=== PATIENT | female | born 1960 | race Caucasian/White ===

== ENCOUNTER 2019-01-05 04:47 | Emergency (ER) | payer MEDICARE, SELFPAY ==
[2019-01-05 04:49] VITALS: BP 126/68; PULSE 99; RESP 20; TEMP 36.8; O2SAT 97; BMI 58.5
[2019-01-05 04:52] VITALS: RESP 20
--- NOTE | 2019-01-05 05:01 | ED.VISSUMM ---
- ER Visit Summary Date of Service: 01/05/19 Chief Complaint: Rash History of Present Illness: The patient is a 58 F presenting with rash/hives which started yesterday. Yesterday afternoon she took Benadryl with improvement of her symptoms. She awoke at 1 AM with return of her symptoms. She complains of itching all over. She denies difficulty breathing or swallowing. She has had no known new exposures. She denies new laundry detergents, soaps, pets, medications, foods. Denies other complaints. Physical Examination: Vitals are stable. Patient is afebrile. Alert no acute distress. HEENT exam is unremarkable. No tongue swelling. No pharyngeal edema. Neck is supple. Lungs are clear and equal bilaterally. Heart is regular rate and rhythm. Abdomen is soft nontender nondistended. Extremities are unremarkable. Skin is warm and dry. Urticarial rash trunk and bilateral upper extremities Remainder of exam is unremarkable. Emergency Department Course and Treatment: Patient was given Solu-Medrol, Benadryl IV. Patient was observed in the ED. On reevaluation, she is feeling improved. She is given a prescription for prednisone. Advised to follow-up with her primary care physician. Advised to return to ED for worsening complaints. Disposition: Discharge home Impression: Urticaria This note was generated with [employer] dictation software. It may contain incorrect words, spelling, and punctuation that were not noted in review of the chart prior to signing ED Disposition - Plan for ED Patient: Instructions: ED Urticaria Prescriptions: Prednisone [Deltasone] 40 mg PO DAILY #10 tablet Referrals: [facility] ,Out of [Primary Care Provider] -
--- NOTE | 2019-01-05 05:05 | ED.DCSUM_ITS ---
- ER Visit Summary Date of Service: 01/05/19 Chief Complaint: Rash History of Present Illness: The patient is a 58 F presenting with rash/hives which started yesterday. Yesterday afternoon she took Benadryl with improvement of her symptoms. She awoke at 1 AM with return of her symptoms. She complains of itching all over. She denies difficulty breathing or swallowing. She has had no known new exposures. She denies new laundry detergents, soaps, pets, medications, foods. Denies other complaints. Physical Examination: Vitals are stable. Patient is afebrile. Alert no acute distress. HEENT exam is unremarkable. No tongue swelling. No pharyngeal edema. Neck is supple. Lungs are clear and equal bilaterally. Heart is regular rate and rhythm. Abdomen is soft nontender nondistended. Extremities are unremarkable. Skin is warm and dry. Urticarial rash trunk and bilateral upper extremities Remainder of exam is unremarkable. Emergency Department Course and Treatment: Patient was given Solu-Medrol, Benadryl IV. Patient was observed in the ED. On reevaluation, she is feeling improved. She is given a prescription for prednisone. Advised to follow-up with her primary care physician. Advised to return to ED for worsening comp laints. Disposition: Discharge home Impression: Urticaria This note was generated with [employer] dictation software. It may contain incorrect words, spelling, and punctuation that were not noted in review of the chart prior to signing ED Disposition - Plan for ED Patient: Instructions: ED Urticaria Prescriptions: Prednisone [Deltasone] 40 mg PO DAILY #10 tablet Referrals: [facility] Doctor,Out of [Primary Care Provider] -
[2019-01-05] MEDS: DiphenhydrAMINE 50 MG/ML Syringe 25 MG IV (05:24)
[2019-01-05] MEDS: MethylPREDNISolone 125 MG/2 ML Vial IV (05:25)
--- NOTE | 2019-01-05 06:17 | DCINST.ED_ITS ---
ED Disposition - Plan for ED Patient: Instructions: ED Urticaria Prescriptions: Prednisone [Deltasone] 40 mg PO DAILY #10 tablet Referrals: [facility] Doctor,Out of [Primary Care Provider] -
[2019-01-05 06:31] VITALS: BP 138/65; PULSE 88; RESP 16; O2SAT 98
== END 2019-01-05 06:32 | disposition home or self-care (01) ==
PROVIDERS: Emergency Provider Emergency Medicine
DX: L50.9 Urticaria, unspecified (principal); E11.9 Type 2 diabetes mellitus without complications; I10 Essential (primary) hypertension; G47.33 Obstructive sleep apnea (adult) (pediatric)
CPT/HCPCS: 96374; 96375; 99284; A4216

== ENCOUNTER 2019-12-12 13:06 | Emergency (ER) | payer MEDICARE, SELFPAY ==
[2019-12-12 13:06] VITALS: BP 146/96; PULSE 93; RESP 16; TEMP 36.6; O2SAT 92; BMI 55.5
--- NOTE | 2019-12-12 13:28 | ED.VIS.URI ---
History of Present Illness Chief Complaint: Cough Informant: Patient Onset: Weeks - about 3 Context: Gradual Onset Timing: Continuous Quality: occ productive cough w/o blood Location: chest Current Severity: Moderate Maximum Severity: Moderate Worsened by: - - coughing, exertion Relieved by: - - rest Associated Symptoms: Nasal Congestion, Shortness of Breath - wheezing, Nonproductive cough. Negative for: Headache, Hemoptysis Narrative: Patient was having some fevers with this but those stopped almost 1 week ago. She was seen in urgent care last week for this, she was put on an unknown antibiotic that she has been taking twice daily for 10 days that starts with DU. 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 She states her asthma has been exacerbated throughout this illness, they would not put her on any steroids last week. She tried to see urgent care at [facility] today but the screener outside the building would not letter written and directed her to the ER. She denies having any known contact with a covid-19 patient. She has not traveled out of the area recently. She is using her albuterol 2 or 3 times daily to try to keep her wheezing at bay and it is helping. 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 Denies: Chills, Sweats Eyes: Denies: Visual changes - bilaterally, Diplopia ENT: Reports: Rhinorrhea. Denies: Bilateral ear pain, Sore throat Cardiovascular: Denies: Chest pain, Palpitations Respiratory: Reports: Dyspnea, Cough, Dyspnea on exertion. Denies: Orthopnea Gastrointestinal: Denies: Abdominal pain, Nausea, Vomiting, Diarrhea, Melena, Hematochezia Genitourinary: Denies: Dysuria, Hematuria, Frequency Musculoskeletal: Denies: Neck pain, Back pain, Swelling, Extremity Pain Skin: Denies: Rash, Wounds Neurological: Denies: Headache, Weakness, Numbness Physical Exam Vital Signs/Narrative: Vital Signs Temp Pulse Resp BP Pulse Ox 12/12/19 13:06 97.8 F 93 16 146/96 H 92 Inital Vital Signs reviewed: Yes General: Well nourished, Well developed, Obese, - - Well-appearing, no distress. Conversive in full sentences Head: Normocephalic, Atraumatic Eyes: Perrl, EOMI Ears: Normal external canal, TM's clear Nose: Normal Inspection, Congestion Mouth/Throat: Normal Inspection, No Posterior Erythema, Airway Patent Neck: Supple, Nontender, No Lymphadenopathy, No Meningismus Cardiovascular: Regular rate, Regular rhythm, No murmurs. Negative for: Tachycardia Respiratory: No distress, Chest nontender, Wheezing. Negative for: Rales, Rhonchi Back: Nontender, Normal Inspection Extremities: Nontender, No edema Skin: Normal color, No rash Neurological: Alert, Oriented x3, Cranial nerves II-XII grossly intact, Normal Strength, Normal Sensation, Normal Gait Psychological: Normal affect, Normal Mood Diagnostic/Tx/Re-eval - Medical Decision Making Patient does not have COVID-19 exposure and is not critically ill or clinically septic, vital signs are stable without hypoxia, and at this time does not meet current [facility] requirements for testing for COVID-19. Also no need to test for influenza. She is on an antibiotic, does not sound like she has pneumonia, her pulse ox is at 92% but that is having had a right upper lobectomy. I feel placing her on steroids will be reasonable since she is able to manage her blood sugar with her insulin if it goes up, she is very familiar with doing this. She is in agreement, that is really what she is wanting and agrees that this is probably viral since the antibiotics that she has been on for 5 days are not helping, I do recommend that she finish the since she started him, and we discussed reasons to return. She is comfortable with this plan of doing a 6-day steroid burst, that way if her blood sugars go too high and are unmanageable she can discontinue it without any adrenal consequences. ED Disposition - Plan for ED Patient: Disposition: Home or Assisted Living Diagnosis: Acute asthmatic bronchitis Instructions: ASTHMA, Acute (Adult), BRONCHITIS with Wheezing (Adult) Prescriptions: Prednisone [Deltasone] 40 mg PO DAILY #12 tab Transmission Status: Pending to [id number] Referrals: [facility] Doctor,Out of [Primary Care Provider] - 1 Week if not improving
== END 2019-12-12 13:44 | disposition home or self-care (01) ==
LOC: ED 13:42
PROVIDERS: Emergency Provider Emergency Medicine
DX: J45.909 Unspecified asthma, uncomplicated (principal); E66.9 Obesity, unspecified; Z90.2 Acquired absence of lung [part of]; E11.9 Type 2 diabetes mellitus without complications; Z79.4 Long term (current) use of insulin
CPT/HCPCS: 99281; 99282

== ENCOUNTER 2021-04-29 08:24 | Day surgery (SDC) | payer MEDICARE, SELFPAY ==
[2021-04-29 09:10] VITALS: BP 103/51; PULSE 72; RESP 16; TEMP 37.1; O2SAT 100; BMI 54.8
[2021-04-29] MEDS: Lactated Ringers 1,000 ML 100 ML IV (09:37)
[2021-04-29 09:40] LABS: Bedside Glucose 80 mg/dL (70-110)
--- NOTE | 2021-04-29 09:42 | RAD_ITS ---
PROCEDURE: Caudal block. DATE OF EXAMINATION: 04/29/2021. INDICATION: Female, 61 years old. Chronic low back pain. FLUOROSCOPY TIME (if supplied): (16 seconds) minutes/seconds. One image was submitted. RAD/Fluor Guidance for Spine Inj IMPRESSION: Intraoperative imaging provided for caudal block. Electronically Signed: Radhames Corona MD at 12:11 EDT , Service support ,
[2021-04-29] MEDS: MethylPREDNISolone Acetate 80 MG/ML Vial (09:50)
[2021-04-29] MEDS: 0.9% Normal Saline (Pres. free 10 ML Vial (09:50)
[2021-04-29] MEDS: Bupivacaine 0.25% 30 ML Vial (09:50)
[2021-04-29] MEDS: Lidocaine 1% (5 ml sdv) 5 ML Vial (09:50)
[2021-04-29 10:00] VITALS: BP 103/51; BP 112/43; PULSE 67; RESP 16; TEMP 36.7; O2SAT 100
[2021-04-29 10:05] VITALS: BP 103/51; BP 116/67; PULSE 70; RESP 16; O2SAT 100
[2021-04-29 10:10] VITALS: BP 103/51; BP 116/67; PULSE 67; RESP 14; O2SAT 97
[2021-04-29 10:15] VITALS: BP 103/51; BP 120/63; PULSE 70; RESP 16; TEMP 36.8; O2SAT 100
[2021-04-29 10:39] VITALS: BP 103/51
--- NOTE | 2021-04-29 13:23 | OP.PCM_ITS ---
Report of Operation Date of Procedure: 04/29/21 Pre-Operative Diagnosis: Lumbosacral radiculopathy, lumbosacral degenerative di sc disease, lumbosacral spinal stenosis Post-Operative Diagnosis: Lumbosacral radiculopathy, lumbosacral degenerative disc disease, lumbosacral spinal stenosis Surgery/Procedure Performed:: Caudal epidural steroid injection under fluoroscopic guidance Type of Anesthesia: MAC Estimated Blood Loss (mL): Minimal Description of Procedure: DESCRIPTION OF PROCEDURE: History and physical of today was reviewed. Risks and benefits of the procedure were explained. The patient understood and agreed to proceed. Informed consent was obtained. IV inserted per routine protocol. The patient was taken to the operating room and placed in the prone position with a pillow positioned underneath the abdomen. The lower back and tailbone area was prepped and draped in a sterile fashion using iodine x3. Under fluoroscopy guidance on a lateral view, the caudal space was identified. The skin and subcutaneous tissue was anesthetized with approximately 3 mL of 1% lidocaine using a 25-gauge regular needle. Under direct visualization with fluoroscopy, using a 22-gauge 3-1/2-inch spinal needle, the needle was advanced via the skin through the sacral hiatus. The tip of the needle was passed through the sacrococcygeal ligament and advanced to approximately S4 area. After negative aspiration of blood or CSF, a total of 3 mL of contrast was injected to confirm correct placement of the needle as well as cephalad spread. The spread was followed to approximately L5 area. After confirmation on AP as well as lateral view and repeated negative aspiration, a total of 15 mL of preservative-free 0.125% Marcaine with 80 mg of Depo-Medrol was injected easily. The needle was then removed intact. The patient experienced no sign or symptoms of intrathecal or intravascular injection. The patient experienced no paresthesia. The procedure was completed without any apparent difficulty or any complications. The patient appeared to tolerate it well. ASSESSMENT AND PLAN: This is a 61-year-old female with lumbosacral radiculopathy, lumbosacral degenerative disc disease, lumbosacral spinal stenosis status post caudal epidural steroid injection, patient will continue her current medications, patient will follow in approximately 2 weeks for reevaluation. Complications None
== END 2021-04-29 11:00 | disposition home or self-care (01) ==
LOC: SDC 08:26 → AC 08:26
PROVIDERS: Referring Provider Anesthesiology Pain Medicine; Visit Provider Anesthesiology Pain Medicine
PROC: 3E0S3BZ Introduction of Anesthetic Agent into Epidural Space, Percutaneous Approach (ICD-10-PCS; CPT 62282; principal; 2021-04-29 09:35)
DX: M47.27 Other spondylosis with radiculopathy, lumbosacral region (principal); M51.17 Intervertebral disc disorders with radiculopathy, lumbosacral region; M48.07 Spinal stenosis, lumbosacral region; M96.1 Postlaminectomy syndrome, not elsewhere classified; M46.96 Unspecified inflammatory spondylopathy, lumbar region; I10 Essential (primary) hypertension; E11.9 Type 2 diabetes mellitus without complications; F32.9 Major depressive disorder, single episode, unspecified; E55.9 Vitamin D deficiency, unspecified; J45.909 Unspecified asthma, uncomplicated; K21.9 Gastro-esophageal reflux disease without esophagitis; G47.33 Obstructive sleep apnea (adult) (pediatric); E05.00 Thyrotoxicosis with diffuse goiter without thyrotoxic crisis or storm; M19.90 Unspecified osteoarthritis, unspecified site; D64.9 Anemia, unspecified; Z85.3 Personal history of malignant neoplasm of breast; Z86.14 Personal history of Methicillin resistant Staphylococcus aureus infection; Z79.4 Long term (current) use of insulin; Z79.82 Long term (current) use of aspirin; Z79.899 Other long term (current) drug therapy; Z79.891 Long term (current) use of opiate analgesic
CPT/HCPCS: 01992; 62323; 64483; 77003; 82962; J7120; J3490

== ENCOUNTER 2021-07-29 09:27 | Day surgery (SDC) | payer MEDICARE, SELFPAY ==
[2021-07-29] VITALS (7 sets, daily range): BP systolic 99–124; BP diastolic 55–74; PULSE 59–65; RESP 16–18; TEMP 36.3–36.9; O2SAT 95–100; BMI 51.7
[2021-07-29] MEDS: Lactated Ringers 1,000 ML 100 ML IV (10:35)
[2021-07-29 10:41] LABS: Bedside Glucose 93 mg/dL (70-110)
--- NOTE | 2021-07-29 11:00 | RAD_ITS ---
EXAM: XR Lumbosacral Spine, 4 or 5 Views CLINICAL INDICATION: 61 years old, Female; MEDIAL BRANCH NERVE BLOCK, L4-S1, BILAT TECHNIQUE: Frontal, lateral and oblique views of the lumbar spine. This report was created using [employer] report [employer] technology. COMPARISON: None. FINDINGS: Vertebrae: Partially visualized. Preserved vertebral body height. No fracture. No spondylolisthesis. Preservation of the normal lumbar lordosis. No significant facet arthropathy. Sacrum/coccyx: Postop changes lumbar spine through sacrum. Disc spaces: No acute findings. Disc spaces are maintained where seen. Other findings: X-ray images demonstrate needle placement for median nerve block. RAD/L/S Spine Min 4 Views IMPRESSION: X-ray images demonstrate needle placement for median nerve block. Electronically Signed: Prince Mayorga MD at 4:03 EDT Tel , Service support ,
--- NOTE | 2021-07-29 11:11 | OP.PCM_ITS ---
Report of Operation Description of Surgical Findings:: Date of Procedure: 07/29/21 Pre-Operative Diagnosis: Lumbosacral spondylosis, lumbosacral degenerative disc disease, lumbar facet arthropathy Post-Operative Diagnosis: Lumbosacral spondylosis, lumbosacral degenerative disc disease, lumbar facet arthropathy PROCEDURE PERFORMED: Bilateral lumbar medial branch block at, L4, L5, and S1. ANESTHESIA: MAC. BLOOD LOSS: Minimal. COMPLICATIONS: None. DESCRIPTION OF PROCEDURE: History and physical of today was reviewed. Risks a nd benefits of the procedure were explained. The patient understood and agreed to proceed. Informed consent was obtained. IV inserted per routine protocol. The patient was taken to the operating room and placed in the prone position with a pillow positioned underneath the abdomen. The lower back area was prepped and draped in a sterile fashion using iodine x3. Under fluoroscopy guidance on AP view, the L4 through S1 vertebral bodies were visualized. The skin and subcutaneous tissue was anesthetized with approximately 5 mL of 1% lidocaine using a 25-gauge regular needle. Under direct visualization with fluoroscopy, at approximately 25-degree angle, starting on the left L4, ending on the right L4, passing through the L5 and S1 bilaterally, using a 22-gauge 5- inch spinal needle, the needle was advanced via the skin. The tip of the needle was maneuvered and directed towards the superior medial gutter of the transverse process at the vicinity of the medial branch. Once tip of the needle was in contact with the bone, the needle was pulled approximately 2 mm off the bone. After negative aspiration for blood or CSF and confirmation on AP, oblique as well as lateral view, a total of 12 mL of preservative-free 0.25% Marcaine with 80 mg of Depo-Medrol was injected in divided doses between those six levels. The needles were then removed intact. The patient experienced no sign or symptoms of intrathecal or intravascular injection. The patient experienced no paresthesia. The procedure was completed without any apparent difficulty or any complications. The patient appeared to tolerate it well. ASSESSMENT AND PLAN: This is a 61-year-old female with lumbosacral spondylosis, lumbosacral degenerative disc disease, lumbar facet arthropathy status post bilateral lumbar medial branch block at L4-S1, patient will continue her current medications, patient will follow in approximately 2 weeks for reevaluation.
[2021-07-29] MEDS: MethylPREDNISolone Acetate 40 MG/ML Vial IM (11:19)
[2021-07-29] MEDS: Lidocaine 1% (30 ml sdv) 30 ML Vial (11:19)
[2021-07-29] MEDS: Bupivacaine 0.25% 30 ML Vial (11:21)
== END 2021-07-29 12:17 | disposition home or self-care (01) ==
LOC: SDC 09:44 → AC 09:44
PROVIDERS: Referring Provider Anesthesiology Pain Medicine; Visit Provider Anesthesiology Pain Medicine
PROC: 3E0T3BZ Introduction of Anesthetic Agent into Peripheral Nerves and Plexi, Percutaneous Approach (ICD-10-PCS; CPT 64493; principal; 2021-07-29 10:55)
DX: M47.817 Spondylosis without myelopathy or radiculopathy, lumbosacral region (principal); M51.17 Intervertebral disc disorders with radiculopathy, lumbosacral region; M46.96 Unspecified inflammatory spondylopathy, lumbar region; M96.1 Postlaminectomy syndrome, not elsewhere classified; M48.07 Spinal stenosis, lumbosacral region; I10 Essential (primary) hypertension; E11.9 Type 2 diabetes mellitus without complications; D64.9 Anemia, unspecified; F32.A Depression, unspecified; E55.9 Vitamin D deficiency, unspecified; K21.9 Gastro-esophageal reflux disease without esophagitis; G47.33 Obstructive sleep apnea (adult) (pediatric); E05.00 Thyrotoxicosis with diffuse goiter without thyrotoxic crisis or storm; M19.90 Unspecified osteoarthritis, unspecified site; J45.909 Unspecified asthma, uncomplicated; Z85.3 Personal history of malignant neoplasm of breast; Z86.19 Personal history of other infectious and parasitic diseases; Z86.14 Personal history of Methicillin resistant Staphylococcus aureus infection; Z79.4 Long term (current) use of insulin; Z79.82 Long term (current) use of aspirin; Z79.891 Long term (current) use of opiate analgesic; Z79.899 Other long term (current) drug therapy
CPT/HCPCS: 01992; 64493; 64494; 64495; 64483; 72110; 82962; J7120

== ENCOUNTER 2021-12-30 07:07 | Day surgery (SDC) | payer MEDICARE, SELFPAY ==
[2021-12-30] VITALS (7 sets, daily range): BP systolic 111–140; BP diastolic 51–91; PULSE 70–80; RESP 16; TEMP 36.8–37; O2SAT 98–100; BMI 50.1
[2021-12-30 07:56] LABS: Bedside Glucose 64 mg/dL (74-106)
[2021-12-30] MEDS: Lactated Ringers 1,000 ML 15 ML IV (07:59)
--- NOTE | 2021-12-30 08:26 | RAD_ITS ---
STUDY: X-RAY - LUMBAR SPINE REASON FOR EXAM: Female, 61 years old. MEDIAL BRANCH NERVE BLOCK T12-L2, BILAT TECHNIQUE: Four frontal view(s) of the lumbar spine were obtained. Dose area product: 0.213 mGycm2 COMPARISON: None. FINDINGS: Fluoroscopic images demonstrate needles projecting over L1 and L2 pedicles. Lumbar fusion hardware noted. RAD/L/S Spine Min 4 Views IMPRESSION: Fluoroscopic guidance for median nerve root block. Please see procedural report. Electronically Signed: Jesus Gould MD (Brooks) at 13:46 EDT ,
--- NOTE | 2021-12-30 08:26 | RAD_ITS ---
STUDY: X-RAY - THORACIC SPINE REASON FOR EXAM: Female, 61 years old. MEDIAL BRANCH NERVE BLOCK T12-L2, BILAT TECHNIQUE: 2 fluoroscopic view(s) of the thoracic spine were obtained. Dose area product: 0.213 mGycm2 COMPARISON: None. FINDINGS: Fluoroscopic images demonstrate needles projecting over T12 pedicles.. RAD/Thoracic Spine 2 Views IMPRESSION: Fluoroscopic guidance for median nerve root block. Please see procedural report. Electronically Signed: Jesus Gould MD ([place]) at 13:45 EDT Reading Location ID and State: [address] [place] [address] , Service support ,
[2021-12-30] MEDS: MethylPREDNISolone Acetate 80 MG/ML Vial (08:37)
[2021-12-30] MEDS: Lidocaine 1% (5 ml sdv) 5 ML Vial (08:37)
[2021-12-30] MEDS: Bupivacaine 0.25% 30 ML Vial (08:37)
--- NOTE | 2021-12-30 12:47 | PCM.OPRPT ---
Report of Operation Date of Procedure: 12/30/21 Description of Surgical Findings:: PREOPERATIVE DIAGNOSES: Thoracolumbar spondylosis, thoracolumbar degenerative disc disease, thoracolumbar facet arthropathy POSTOPERATIVE DIAGNOSES: Thoracolumbar spondylosis, thoracolumbar degenerative disc disease, thoracolumbar facet arthropathy PROCEDURE PERFORMED: Bilateral thoracolumbar medial branch block at T11, T12, L1.. ANESTHESIA: MAC. BLOOD LOSS: Minimal. COMPLICATIONS: None. DESCRIPTION OF PROCEDURE: History and physical of today was reviewed. Risks and benefits of the procedure were explained. The patient understood and agreed to proceed. Informed consent was obtained. IV inserted per routine protocol. The patient was taken to the operating room and placed in the prone position with a pillow positioned underneath the abdomen. The mid back area was prepped and draped in a sterile fashion using iodine x3. Under fluoroscopy guidance on AP view, the T11 through L2 vertebral bodies were visualized. The skin and subcutaneous tissue was anesthetized with approximately 5 mL of 1% lidocaine using a 25-gauge regular needle. Under direct visualization with fluoroscopy at approximately 25-degree angle, starting on the left T11, ending on the right T11, passing through the T12 and L1 bilaterally, using a 22-gauge 3-1/2-inch spinal needle, the needle was advanced via the skin. The tip of the needle was maneuvered and directed towards the epiphyseal junction of each corresponding vertebra at T11 and T12. At L1 and L2, the needle was maneuvered and directed towards the superior medial gutter of the transverse process at the vicinity of the medial branch. Once tip of the needle was in contact with the bone, the needle was pulled approximately 2 mm of the bone. After negative aspiration for blood or CSF and confirmation on AP, oblique as well as lateral view, a total of 12 mL of preservative-free 0.25% Marcaine with 80 mg of Depo-Medrol was injected in divided doses between those four levels. The needles were then removed intact. The patient experienced no sign or symptoms of intrathecal or intravascular injection. The patient experienced no paresthesia. The procedure was completed without any apparent difficulty or any complications. The patient appeared to tolerate it well. ASSESSMENT AND PLAN: This is a 61-year-old female with thoracolumbar spondylosis, thoracolumbar degenerative disc disease, thoracolumbar facet arthropathy status post bilateral thoracolumbar medial branch block at T11-L1, patient will continue her current medications, patient will follow approximately 1 week for reevaluation.
== END 2021-12-30 23:59 | disposition home or self-care (01) ==
LOC: SDC 07:11 → AC 07:12
PROVIDERS: Referring Provider Anesthesiology Pain Medicine; Visit Provider Anesthesiology Pain Medicine
PROC: 3E0T3BZ Introduction of Anesthetic Agent into Peripheral Nerves and Plexi, Percutaneous Approach (ICD-10-PCS; CPT 64479; principal; 2021-12-30 08:40)
DX: M47.815 Spondylosis without myelopathy or radiculopathy, thoracolumbar region (principal); M46.96 Unspecified inflammatory spondylopathy, lumbar region; E11.9 Type 2 diabetes mellitus without complications; Z79.4 Long term (current) use of insulin; M51.35 Other intervertebral disc degeneration, thoracolumbar region; I10 Essential (primary) hypertension; F32.A Depression, unspecified; E55.9 Vitamin D deficiency, unspecified; J45.909 Unspecified asthma, uncomplicated; K21.9 Gastro-esophageal reflux disease without esophagitis; G47.33 Obstructive sleep apnea (adult) (pediatric); M19.90 Unspecified osteoarthritis, unspecified site; Z85.3 Personal history of malignant neoplasm of breast; Z86.19 Personal history of other infectious and parasitic diseases; Z86.14 Personal history of Methicillin resistant Staphylococcus aureus infection; Z79.82 Long term (current) use of aspirin; Z79.899 Other long term (current) drug therapy; M96.1 Postlaminectomy syndrome, not elsewhere classified; M51.17 Intervertebral disc disorders with radiculopathy, lumbosacral region; M47.27 Other spondylosis with radiculopathy, lumbosacral region; M48.07 Spinal stenosis, lumbosacral region; Z79.891 Long term (current) use of opiate analgesic
CPT/HCPCS: 64479; 64480 ×2; 01992; 64483; 64490; 72070; 72110; 82962; J7120

== ENCOUNTER 2022-05-12 12:38 | Day surgery (SDC) | payer MEDICARE, SELFPAY ==
[2022-05-12] VITALS (7 sets, daily range): BP systolic 103–133; BP diastolic 54–84; PULSE 60–70; RESP 16–18; TEMP 36.4–37.2; O2SAT 98–100; BMI 53.9
[2022-05-12] MEDS: Lactated Ringers 1,000 ML 15 ML IV (13:33)
[2022-05-12] MEDS: Cefazolin 2 GM in 0.9% Normal Saline 100 ML IV (13:55)
--- NOTE | 2022-05-12 13:55 | RAD_ITS ---
STUDY: X-RAY - LUMBAR SPINE REASON FOR EXAM: Female, 62 years old. SPINAL CORD STIM THORACOLUMBAR REGION TECHNIQUE: 2 view(s) of the lumbar spine were obtained. COMPARISON: None FINDINGS: Fluoroscopy the lumbar spine was utilized in the operating room during a dorsal column spinal stimulator placement in 9 images are significant for interpretation.. RAD/Lumbar Spine 2 or 3 Views IMPRESSION: Fluoroscopy during stimulator placement. Electronically Signed: Dyllan Marquez MD at 14:42 EDT ,
[2022-05-12 13:56] LABS: Bedside Glucose 76 mg/dL (74-106)
[2022-05-12] MEDS: Bupivacaine 0.25% 30 ML Vial (14:03)
[2022-05-12] MEDS: Lidocaine 2% (5ml sdv) 5 ML VIAL.MPF 20 ML INFILT (14:03)
[2022-05-12] MEDS: Bacitracin 500 UNITS/GM PACKET (14:30)
--- NOTE | 2022-05-12 14:31 | PCM.OPRPT ---
Report of Operation Date of Procedure: 05/12/22 Description of Surgical Findings:: Pre-Operative Diagnosis: Lumbosacral radiculopathy, lumbosacral degenerative disc disease, lumbosacral spinal stenosis, postlaminectomy syndrome of the lumbar spine Post-Operative Diagnosis: Lumbosacral radiculopathy, lumbosacral degenerative disc disease, lumbosacral spinal stenosis, postlaminectomy syndrome of the lumbar spine Surgery/Procedure Performed:: 1.? Spinal cord stimulator thoracolumbar leads placement x2 percutanous trial 2-spinal cord stimulator complex programming, 3-intraoperative fluoroscopic interpretation for spinal cord stimulator insertion. ANESTHESIA: MAC COMPLICATIONS: None BLOOD LOSS: Minimal Implanted device: Spinal cord stimulator lead [id number] lot number [id number], lead #2? [id number] lot number [id number] PROCEDURE IN DETAIL: History and physical today was reviewed. Risks and benefits of procedure explained. The patient understood, agreed to procedure, informed consent was obtained. IV inserted per routine protocol. The patient was taken to the operating room, placed in the prone position with a pillow positioned underneath the abdomen. A 2 g of Ancef IV piggyback was infused per anesthesia. The lower back area was prepped and draped in a sterile fashion using iodine x3 Ioban was placed.? The C-arm was brought in position for AP view at the L1-2 vertebral bodies under direct visualization fluoroscopy on a true AP view the L1-2 interlaminar space was identified skin and subcutaneous tissue and size approximately 10 cc of a mix of 2% lidocaine and 0.25% Marcaine using a 25-gauge regular needle followed by a 25-gauge 3-1/2 inch spinal needle towards the interlaminar space at T12-l1, the skin and subcutaneous tissue were then anesthetized and using an 11-gauge blade was then taken down to the skin and subcutaneous tissue using a 14-gauge 5 inch Touhy needle provided by the [facility] kit the needle was passed through the skin towards the interlaminar space at L1-2 and a left paramedian approach the needle was then advanced under direct visualization fluoroscopy towards the interlaminar space at L1-2 [id number] technique was then carried to air towards the interlaminar space at L1-2 once the tip of the needle was in the epidural space and loss of resistance was encountered to air and after confirmation of AP as well as oblique view of the spinal cord stimulator lead was then advanced under direct visualization fluoroscopy to be at the tip of the lead at top of T8 and the bottom of the lead around mid T10 after confirmation of AP as well as lateral view to confirm correct placement of the lead in the posterior compartment of the epidural space the previous procedure was then repeated to the right at L1-2 interlaminar space to the right the second lead was then inserted under direct visualization with fluoroscopy to be at the top of T8 and mid T10 area the leads were were then connected to the external neurostimulator and patient was then awakened to confirm satisfactory coverage of the painful area once satisfactory coverage was then achieved the stylette of each needle was then removed and the skin and subcutaneous tissue on to the left of the paramedian needles was then taken anesthetized with a total of 10 cc of the previous mixture of 0.25% Marcaine and 2% lidocaine using a 25-gauge regular needle , using the 2-0 silk stitch to secure both leads to the skin with Steri-Strips, the skin was then covered with a Steri-Strips and bacitracin, the external stimulator was then attached to the pouch to the left of the patient's lower back area, the patient was then returned into the supine position in a stable condition and returned to recovery in a stable condition patient experienced no signs or symptoms of intrathecal or intravascular injection patient experienced no paresthesia the procedure was completed without any apparent difficulty any complication the patient appeared to tolerate well, motor as well as sensory function was unchanged from prior to the procedure. ESTIMATED BLOOD LOSS: Minimal less than 10 mL ASSESSMENT AND PLAN: This is a 62-year-old female with lumbosacral radiculopathy lumbosacral, degenerative disc disease lumbosacral spinal stenosis status post 1.? Spinal cord stimulator thoracolumbar leads placement x2 percutaneous trial, spinal cord stimulator programming, intraoperative fluoroscopic interpretation,? patient will continue her current medications a prescription was provided to the patient Keflex 500 mg 1 p.o. every 8 hours for 7 days postop instruction were given in writing to the patient as well as verbally, patient will follow approximately 3 days for reevaluation.
== END 2022-05-12 15:45 | disposition home or self-care (01) ==
LOC: SDC 12:38 → AC 12:50
PROVIDERS: Referring Provider Anesthesiology Pain Medicine; Visit Provider Anesthesiology Pain Medicine
PROC: (CPT 63650; principal; 2022-05-12 14:10)
DX: M96.1 Postlaminectomy syndrome, not elsewhere classified (principal); E11.9 Type 2 diabetes mellitus without complications; Z79.4 Long term (current) use of insulin; I10 Essential (primary) hypertension; K21.9 Gastro-esophageal reflux disease without esophagitis; J45.909 Unspecified asthma, uncomplicated; F41.9 Anxiety disorder, unspecified; Z79.899 Other long term (current) drug therapy; Z79.82 Long term (current) use of aspirin; N32.9 Bladder disorder, unspecified; F32.A Depression, unspecified; E78.00 Pure hypercholesterolemia, unspecified; Z86.14 Personal history of Methicillin resistant Staphylococcus aureus infection; G25.81 Restless legs syndrome; M51.17 Intervertebral disc disorders with radiculopathy, lumbosacral region; M48.07 Spinal stenosis, lumbosacral region
CPT/HCPCS: 63685; 63650 ×2; 72100; 76000; 82962; J7120; J2405

== ENCOUNTER 2022-07-14 11:16 | Day surgery (SDC) | payer MEDICARE, SELFPAY ==
[2022-07-14 11:52] VITALS: BP 102/41; PULSE 65; RESP 16; TEMP 36.5; O2SAT 100; BMI 53.6
--- NOTE | 2022-07-14 12:15 | RAD_ITS ---
STUDY: X-RAY - LUMBAR SPINE REASON FOR EXAM: Female, 62 years old. SPINAL CORD STIMULATOR INSERTION TECHNIQUE: 10 intraoperative C-arm view(s) of the lumbar spine were obtained. COMPARISON: None FINDINGS: 10 Limited intraoperative C-arm films were performed as the patient has undergone placement of a spinal cord stimulator. Leads are in satisfactory position over the lower thoracic spine, no intraoperative complications noted. RAD/Lumbar Spine 2 or 3 Views IMPRESSION: No intraoperative complications noted during placement of a spinal cord stimulator. Electronically Signed: Duke Patino MD at 10:11 EDT ,
[2022-07-14] MEDS: Lactated Ringers 1,000 ML 15 ML IV (12:20)
[2022-07-14 12:40] LABS: Bedside Glucose 95 mg/dL (74-106)
[2022-07-14] MEDS: Cefazolin 2 GM in 0.9% Normal Saline 100 ML IV (13:05)
[2022-07-14] MEDS: Lidocaine 2% (20 ml mdv) 20 ML Vial (13:35)
[2022-07-14] MEDS: Bupivacaine 0.25% 30 ML Vial OPERA.SITE (13:35)
--- NOTE | 2022-07-14 14:32 | OP.PCM_ITS ---
Report of Operation Date of Procedure: 07/14/22 Description of Surgical Findings:: Pre-Operative Diagnosis:?Lumbosacral radiculopathy, lumbosacral degenerative disc disease, lumbosacral spinal stenosis, postlaminectomy syndrome of the lumbar spine Post-Operative Diagnosis:?Lumbosacral radiculopathy, lumbosacral degenerative disc disease, lumbosacral spinal stenosis, postlaminectomy syndrome of the lumbar spine Surgery/Procedure Performed::?1.? Spinal cord stimulator thoracolumbar leads placement x2 #2 spinal cord stimulator Medtronic intellus generator placement #3 spinal cord stimulator generator pocket creation at the right gluteal region #4 spinal cord stimulator simple programming, 5-intraoperative fluoroscopic interpretation Description of Surgical Findings:: MAC COMPLICATIONS: None BLOOD LOSS: Minimal Implanted device: Spinal cord stimulator lead [id number] lot number [id number], lead #2? [id number] lot number [id number] Medtronic spinal cord stimulator generator intellus serial number [id number] PROCEDURE IN DETAIL: History and physical today was reviewed. Risks and benefits of procedure explained. The patient understood, agreed to procedure, informed consent was obtained. IV inserted per routine protocol. The patient was taken to the operating room, placed in the prone position with a pillow positioned underneath the abdomen. A 2 g of Ancef IV piggyback was infused per anesthesia. The lower back and right gluteal area was prepped and draped in a sterile fashion using iodine x3 Ioban was placed.? The C-arm was brought in position for AP view at the T12-L1 vertebral bodies under direct visualization fluoroscopy on a true AP view the T12-L1 interlaminar space was identified skin and subcutaneous tissue and size approximately 10 cc of a mix of 2% lidocaine and 0.25% Marcaine using a 25-gauge regular needle followed by a 25-gauge 3-1/2 inch spinal needle towards the interlaminar space at T12-L1, the skin and subcutaneous tissue were then anesthetized and using an 11-gauge blade was then taken down to the skin and subcutaneous tissue using a 14-gauge 5 inch Touhy needle provided by the [employer] kit the needle was passed through the skin towards the interlaminar space at T12-L1 and a right paramedian approach the needle was then advanced under direct visualization fluoroscopy towards the interlaminar space at [id number] technique was then carried to air towards the interlaminar space at L2-3 once the tip of the needle was in the epidural space and loss of resistance was encountered to air and after confirmation of AP as well as oblique view of the spinal cord stimulator lead was then advanced under direct visualization fluoroscopy to be at the tip of the lead at T8 and the bottom of the lead around mid T10 after confirmation of AP as well as lateral view to confirm correct placement of the lead in the posterior compartment of the epidural space the previous procedure was then repeated to the above level at T11-12 to the right lumbar paramedian approach, ?the second lead was then inserted under direct visualization with fluoroscopy to be at the mid T8 and mid T10 area the leads were were then connected to the external neurostimulator and patient was then awakened to confirm satisfactory coverage of the painful area once satisfactory coverage was then achieved the stylette of each needle was then removed and the skin and subcutaneous tissue on to the left of the paramedian needles was then taken anesthetized with a total of 10 cc of the previous mixture of 0.25% Marcaine and 2% lidocaine using a 25-gauge regular needle the incision was then taken down through the skin and subcutaneous tissue towards the fascia making sure hemostasis was then maintained via cautery, the spinal cord stimulator leads were then passed through the above incision and secured using the biwing and sutured down with a 2-0 silk to the fascia at that level the spinal cord stimulator leads were then tunneled via a tunneler provided by the [employer] kit towards the previously incised spinal cord stimulator battery at the right gluteal region skin and subcutaneous tissue were anesthetized with approximately 10 cc of a mix of 2% lidocaine and 0.25% Marcaine using a 25 gauge regular needle, skin and subcutaneous tissue was then taken down with the 11-gauge blade hemostasis was maintained with Bovie and direct pressure the incision was then taken down to the fascia and the battery was then secured with the 2-0 silk sutures that were the spinal cord stimulator leads the upper lead was then marked the new until spinal cord stimulator battery was then provided Via [employer] kit the battery was then reattached of the spinal cord stimulator make ensure that the top lead is attached to the top position from 0-7 electrodes and the bottom from 8-15 electrodes once impedance was then checked to be in the proper average number the intellus battery was then placed in a TYRX antibacterial pouch then inserted into the pocket and impedance with when checked again the pocket was then inspected to confirm hemostasis in place, the intellus battery was then secured to the fascia using a 2-0 silk to the upper eyes of the battery confirming an upward writing of the intellus facing posterior,? once complete confirmation the battery was then placed in the position and the the mid paramedian and the gluteal incisions were then closed primarily through 0 Vicryl in an interrupted fashion followed by a 3-0 Vicryl in a running fashion followed by a 4-0 Monocryl to the skin, hemostasis was then maintained during the procedure the skin was then covered with a Steri-Strips and bacitracin patient was then returned into the supine position in a stable condition and returned to recovery in a stable condition patient experienced no signs or symptoms of intrathecal or intravascular injection patient experienced no paresthesia the procedure was completed without any apparent difficulty any complication the patient appeared to tolerate well, motor as well as sensory function was unchanged from prior to the procedure ESTIMATED BLOOD LOSS: Minimal less than 25 mL ASSESSMENT AND PLAN: This is a 62-year-old female with lumbosacral radiculopathy lumbosacral dege nerative disc disease lumbosacral spinal stenosis, postlaminectomy syndrome of the lumbar spine status post 1.? Spinal cord stimulator thoracolumbar leads placement x2 #2 spinal cord stimulator Medtronic intellus generator placement #3 spinal cord stimulator generator pocket creation at the right gluteal region #4 spinal cord stimulator simple programming, 5-intraoperative fluoroscopic interpretation patient will continue her current medications a prescription was provided to the patient? Keflex 500 mg 1 p.o. every 8 hours for 7 days,? postop instruction were given in writing to the patient as well as verbally and in writing, patient will follow approximately 1 week for reevaluation.
[2022-07-14] MEDS: Bacitracin 500 UNITS/GM PACKET (14:39)
[2022-07-14 14:50] VITALS: BP 102/41; BP 135/66; PULSE 77; RESP 16; TEMP 36.9; O2SAT 99
[2022-07-14 14:55] VITALS: BP 102/41; BP 132/82; PULSE 82; RESP 16; O2SAT 97
[2022-07-14 15:00] VITALS: BP 102/41; BP 127/74; PULSE 79; RESP 16; O2SAT 99
[2022-07-14 15:05] VITALS: BP 102/41; BP 130/76; PULSE 80; RESP 16; TEMP 36.9; O2SAT 100
[2022-07-14 15:21] VITALS: BP 102/41
== END 2022-07-14 16:16 | disposition home or self-care (01) ==
LOC: SDC 11:16 → AC 11:17
PROVIDERS: Referring Provider Anesthesiology Pain Medicine; Visit Provider Anesthesiology Pain Medicine
PROC: (CPT 63685; principal; 2022-07-14 13:00)
DX: M51.17 Intervertebral disc disorders with radiculopathy, lumbosacral region (principal); Z79.4 Long term (current) use of insulin; E11.9 Type 2 diabetes mellitus without complications; M48.07 Spinal stenosis, lumbosacral region; M96.1 Postlaminectomy syndrome, not elsewhere classified; I10 Essential (primary) hypertension; I25.10 Atherosclerotic heart disease of native coronary artery without angina pectoris; D64.9 Anemia, unspecified; F41.9 Anxiety disorder, unspecified; K21.9 Gastro-esophageal reflux disease without esophagitis; E05.00 Thyrotoxicosis with diffuse goiter without thyrotoxic crisis or storm; E78.00 Pure hypercholesterolemia, unspecified; G25.81 Restless legs syndrome; F12.90 Cannabis use, unspecified, uncomplicated; Z85.3 Personal history of malignant neoplasm of breast; Z92.3 Personal history of irradiation; Z92.21 Personal history of antineoplastic chemotherapy; Z98.1 Arthrodesis status; Z90.2 Acquired absence of lung [part of]; Z90.10 Acquired absence of unspecified breast and nipple; Z79.899 Other long term (current) drug therapy; Z79.82 Long term (current) use of aspirin
CPT/HCPCS: 63650; 63685; 00400; 72100; 76000; 82962; C1778; C1820; J7120; J2405